=== PATIENT | male | born 1965 | race Caucasian/White ===

== ENCOUNTER 2016-08-23 06:32 | Day surgery (SDC) | payer BC ==
[2016-08-23] MEDS ORDERED: Sodium Chloride 0.9% 1,000 ML IV SCH (07:00)
[2016-08-23] MEDS ORDERED: Propofol 200 MG/20 ML SDV ONE (07:50)
[2016-08-23] MEDS ORDERED: fentaNYL 100 MCG/2 ML SDV ONE (07:50)
[2016-08-23] MEDS ORDERED: Midazolam 1 MG/ML 2 ML SDV ONE (07:50)
[2016-08-23 09:52] VITALS: BP 108/81
--- NOTE | 2016-08-23 13:37 | OR ---
DATE OF PROCEDURE: 08/23/2016 PROCEDURE: Colonoscopy. FINDINGS: Normal colonoscopy. PREOPERATIVE DIAGNOSIS: Screening colonoscopy. POSTOPERATIVE DIAGNOSIS: Screening colonoscopy. COMPLICATIONS: None. TEST CLERK: None. INDICATIONS: Risks, benefits, alternatives, and limitations, including but not limited to infection, bleeding, and perforation were explained to the patient who wished to proceed. PROCEDURE IN DETAIL: The patient was placed in left lateral decubitus position. Digital rectal exam was performed without abnormality. The scope was introduced and advanced atraumatically to the ileocecal valve. The scope was brought back to the ascending, transverse, descending colon, and retroflexed. No polyps. No masses. No blood. No diverticulosis. No abnormalities on retroflexion. The patient tolerated the procedure well. Kt Miles MD /[id number]
== END 2016-08-23 10:01 | disposition home or self-care (01) ==
LOC: JP.SDS 06:32
PROVIDERS: ATTEND Surgery
DX: Z12.11 Encounter for screening for malignant neoplasm of colon (principal)
CPT/HCPCS: 45378; J2250; J2704; J3010; J7040